=== PATIENT | male | born 1950 | race Caucasian/White ===

== ENCOUNTER 2023-09-21 09:26 | Outpatient (AMB) | payer MEDICARE, SELFPAY ==
--- NOTE | 2023-09-21 10:06 | AM.OFFWIN_ITS ---
Intake Vital Signs 3 09/21/23 10:08 Height 5 ft 8 in Weight 214 lb BMI 32.5 BP 122/80 Blood Pressure Location Lt brachial Position Sitting Pulse 62 Pulse Source Pulse Oximeter Pulse Oximetry (%) 92 Oxygen Delivery Method Room Air Intake Visit Reasons: EST/right hand pointer finger infection (lobby) Intake Note: Patient here for right hand pointer finger infection that has been present for a couple of days that progressively worsened, has redness, swelling and white head . Patient Tobacco Use Status: Current everyday Tobacco user Allergies sulfamethoxazole [From Bactrim] Allergy (Mild, Verified 09/21/23 10:23) Hives trimethoprim [From Bactrim] Allergy (Mild, Verified 09/21/23 10:23) Hives Do you need a note to return to daycare/school/sports/work: No HPI HPI Comments 2 History of Present Illness0 Details 72-year-old male with diabetes here toda y with complaints of of red swollen finger on his right hand. Reports that the pointer finger on his right hand became red and painful with a pimple like area few days ago. He self treated by trying to [place] the pustule with a diabetic lancet. This unfortunately worsened the redness, pain and swelling Reports UTD on Tdap Current smoker Reports this happened previously and was tx successfully outpatient with 3 rounds of PO AB. [facility] Social History Patient Tobacco Use Status: Current everyday Tobacco user Review of Systems Const All systems reviewed & are unremarkable except as noted in HPI and below Physical Exam Vital Signs: Last Vital Signs Pulse 62 09/21/23 10:08 BP 122/80 09/21/23 10:08 Pulse Ox 92 09/21/23 10:08 Oxygen Delivery Method Room Air 09/21/23 10:08 BMI result Body Mass Index 32.5 Extrem Hand/finger images: 2 1. MARBLE SIZED ABCESS FINGER ERYTHEMATOUS AND EDEMATOUS GENERALLY SPEAKING PAINFUL TO TOUCH + CAP REFILL. No streaking. Results Reviewed Results Reviewed: FINDINGS: No fracture or dislocation. There is arthritis at the IP joints first RETIREMENT and MCP joints with joint space narrowing and osteophyte formation. There is subchondral cystic change seen at the DIP joint of the second finger as well. Differential would include inflammatory and septic arthritis. There is overlying soft tissue swelling. There are 2 linear radiopaque densities that project adjacent to the mid shafts of the third and fourth metacarpal bones questionable for soft tissue foreign bodies. XR/XR finger RT min 2V IMPRESSION: Severe arthritis. There is marked subchondral cystic change at the DIP joint of the second finger and associated soft tissue swelling. Inflammatory and septic arthritis should be considered. Question soft tissue foreign bodies adjacent to the third and fourth metacarpal bones. Assessment & Plan Assessment & Plan (1) Felbryan of finger of right hand: Code(s): L03.011 - Cellulitis of right finger Plan: , Plan THIS NOTE IS CONSTRUCTED USING VOICE RECOGNITION SOFTWARE. WHILE EVERY EFFORT HAS BEEN MADE TO ENSURE ACCURACY IN [employer], STILL ERRORS MAY HAVE BEEN INCLUDED SOMETIMES, THESE ERRORS MAY AFFECT THE CONTENT OR MEANING OF THE GIVEN SENTENCE . TOTAL TIME SPENT CARING FOR THE PATIENT TODAY WAS 50 MINUTES. THIS INCLUDES TIME SPENT BEFORE THE VISIT REVIEWING THE CHART, TIME SPENT DURING THE VISIT, AND TIME SPENT AFTER THE VISIT ON DOCUMENTATION Orders: Orders 2 XR finger RT min 2V Today L03.011 - Cellulitis of right finger Patient Instructions: GIVEN THE SEVERITY AND HIS COMORBID CONDITIONS HE WAS ADVISED TO SEEK CARE AT THE HOSPITAL. HE STATES THAT HE WILL GO TO [place] THIS IS HIS PRIMARY CARE NETWORK. HE IS ABLE TO DRIVE HIMSELF. STATES THAT HE WILL BE GOING HOME BEFORE GOING TO THE HOSPITAL. ADVISED THAT THIS CONDITION IS NOT LIFE-THREATENING AND CERTAINLY COULD BE LIMB THREATENING IF HE DELAYS CARE. HE VERBALIZED UNDERSTANDINGS. AND DOES STATE THAT HE WILL GO TO THE HOSPITAL RECOMMENDED. Coding Level of Care Code Est Pt Level 5 (78418) Diagnoses Felbryan of finger of right hand L03.011
[2023-09-21 10:08] VITALS: BP 122/80; PULSE 62; O2SAT 92; BMI 32.5
== END 2023-09-21 10:57 | disposition home or self-care (01) ==
PROVIDERS: Visit Provider Nurse Practitioner Family
DX: L03.011 Cellulitis of right finger (principal)
CPT/HCPCS: 99215

== ENCOUNTER 2023-09-21 10:33 | Outpatient (REF) | payer MEDICARE, SELFPAY ==
--- NOTE | ~2023-09-21 | XR_ITS ---
EXAMINATION: XR FINGER, RIGHT CLINICAL INFORMATION: Right finger cellulitis COMPARISON: None available. TECHNIQUE: Three views of the right second. FINDINGS: No fracture or dislocation. There is arthritis at the IP joints first JAIL and MCP joints with joint space narrowing and osteophyte formation. There is subchondral cystic change seen at the DIP joint of the second finger as well. Differential would include inflammatory and septic arthritis. There is overlying soft tissue swelling. There are 2 linear radiopaque densities that project adjacent to the mid shafts of the third and fourth metacarpal bones questionable for soft tissue foreign bodies. XR/XR finger RT min 2V IMPRESSION: Severe arthritis. There is marked subchondral cystic change at the DIP joint of the second finger and associated soft tissue swelling. Inflammatory and septic arthritis should be considered. Question soft tissue foreign bodies adjacent to the third and fourth metacarpal bones.
== END 2023-09-21 10:34 | disposition home or self-care (01) ==
LOC: HO.HMGCX 10:33
PROVIDERS: Visit Provider Nurse Practitioner Family
DX: L03.011 Cellulitis of right finger (principal)
CPT/HCPCS: 73140